=== PATIENT | male | born 1970 | race Caucasian/White ===

== ENCOUNTER 2022-08-31 16:23 | Emergency (ER) | payer OTHER, SELFPAY ==
[2022-08-31 16:23] VITALS: BP 153/95; PULSE 75; RESP 16; TEMP 36.6; O2SAT 100; BMI 26.9
--- NOTE | 2022-08-31 17:08 | EDS_ITS ---
HPI HPI - GI History of Present Illness Chief Complaint: Abd Pain Informant: patient and spouse/S.O. Narrative Narrative: Patient has been having essentially upper abdominal pain for about a week. It was sometimes moved to different areas. He has never had fevers or chills. He is not having nausea. He is able to eat and drink. Bowel habits have been relatively normal. He has history of prior cholecystectomy about 5 years ago and no issues. He does have a long history of reflux and GERD. He has been taking his omeprazole regularly. He does get sour acid the taste that will come in the back of his throat at times and he will get a little burning up into his chest. But he is not really having chest pain. Not having syncope lightheadedness shortness of breath or diaphoresis. He cannot think of any dietary changes that would have contributed to this. He saw his primary physician he was referred over here. [facility] Medical History (Updated 08/31/22 @ 19:[address] Mil Cole MD) Abdominal pain Abdominal pain Home Medications sucralfate 1 gram tablet (Carafate) 1 g PO TID #30 tabs 08/31/22 [Rx Last Taken Unknown] Allergy/AdvReac Type Severity Reaction Status Date / Time No Known Allergies Allergy Unverified 08/31/22 16:25 Family History Mother Hypertension Surgical History History of laparoscopic cholecystectomy History of tonsillectomy Social History Smoking Status: Never smoker alcohol intake: never substance use type: does not use ROS ROS ED Constitutional Constitutional ED: Denies chills or fever(s) ENT ENT ED: Denies sore throat Cardiovascular Cardiovascular: Denies palpitations or racing heartbeat Respiratory/Chest Respiratory/Chest: Denies cough or dyspnea Gastrointestinal Gastrointestinal: Reports abdominal pain and diarrhea; Denies nausea or vomiting Genitourinary Genitourinary ED: Denies hematuria Musculoskeletal Musculoskeletal: Denies back pain or neck pain Integumentary Denies rash Endocrine Endocrinology: Denies polydipsia or polyuria Hematologic/Lymphatic Hematologic/Lymphatic: Denies easy bleeding or easy bruising Allergic/Immunologic Allergic/Immunologic ED: Denies urticaria EXAM Physical Exam Narrative Exam Narrative: Patient awake alert sitting on bed in no acute distress. He looks comfortable nontoxic. HEENT shows no pallor. Mucous membranes are reasonably moist. Eyes show no pallor or icterus. Neck shows no JVD Lungs are clear bilaterally. No pain with a deep breath. Saturations are normal 100% on room air showing no hypoxia. Heart is regular. Rate of about 70. No murmur gallop or rub. No chest wall tenderness. No subcu air. Abdomen is soft nondistended has normal bowel sounds. He does have mild epigastric tenderness but no rebound or guarding. No tenderness in the lower abdomen or right upper quadrant. shows no CVA or suprapubic tenderness Extremities show no edema tenderness cords or asymmetry. Const Vital Signs: 08/31/22 16:23 Temperature 97.8 F Temperature Source Temporal Pulse Rate 75 Respiratory Rate 16 Blood Pressure 153/95 H Blood Pressure Mean 114 Pulse Ox 100 Oxygen Delivery Method Room Air MDM MDM MDM Narrative Medical decision making narrative: Patient's blood work shows normal CBC electrolytes liver function test lipase and troponin. Patient's recheck. He is feeling well now. His is very frustrated. She states that after 5 years is very frustrating that his symptoms are not controlled. He had endoscopy about 3 or so years ago. He was called by the office about 3 weeks ago to schedule a repeat. This patient is really having epigastric pain. He will occasionally get reflux. He is not really having much pain into his chest but will occasionally get a burning sensation. But he is not having other symptoms. These are not exertional. They do increase if he bends over. Bending over forward significantly produces the symptoms. I think this is likely acid related. I do not think this is cardiac. Since he has been having symptoms off and on for a week or more he has a totally negative troponin and overall low risk factors I do not think this requires admission for cardiac work-up. He is taking omeprazole. I discussed adding Maalox or Mylanta 3 times a day after meals and then before bedtime. This can help neutralize any remaining acid. I will also write for Carafate to see if this works and helps him. He will follow-up with his private physician. Lab Data Attestation: I reviewed the patient's lab results. Labs: Laboratory Results - last 24 hr 08/31/22 08/31/22 17:05 17:05 WBC 8.0 RBC 5.00 Hgb 15.4 Hct 45.3 MCV 90.6 MCH 30.8 MCHC 34.0 RDW Std Deviation 40.2 RDW Coeff of Calvin 12.2 Plt Count 214 MPV 9.0 Immature Gran % (Auto) 0.500 Neut % (Auto) 60.2 Lymph % (Auto) 29.4 Beaver % (Auto) 9.0 Eos % (Auto) 0.5 Baso % (Auto) 0.4 Absolute Neuts (auto) 4.8 Absolute Lymphs (auto) 2.36 Nucleated RBC % 0 Sodium 140 Potassium 3.8 Chloride 108 H Carbon Dioxide 26.0 Anion Gap 6 BUN 17 Creatinine 0.98 Estim Creat Clear Calc 85.31 Est GFR (MDRD) Af Amer 103 Est GFR (MDRD) Non-Af 85 BUN/Creatinine Ratio 17.3 Glucose 95 Calcium 9.5 Total Bilirubin 0.50 AST 26 ALT 67 H Alkaline Phosphatase 63 Troponin I High Sens 4 Total Protein 7.6 Albumin 4.2 Globulin 3.4 Albumin/Globulin Ratio 1.2 Lipase 131 Discharge Plan Triage Chief Complaint: Abd Pain ED Provider: Mil Cole Dx/Rx/DC Orders Clinical Impression: Epigastric pain Instructions: ED Gastritis Ulcer No Abx, ED Epigastric Pain Uncertain Cause Prescriptions: New sucralfate [Carafate] 1 gram tablet 1 g PO TID Qty: 30 0RF Primary Care Provider: Kathia Tubbs Referrals: Kathia Tubbs PA [Primary Care Provider] - 3-5 Days Disposition Disposition: Home, Self Care
[2022-08-31 17:28] LABS: Absolute Lymphocyte Count 2.36 X10^3/uL (0.83-4.51); Absolute Neutrophil Count 4.8 X10^3/uL (2.0-7.7); Basophil# 0.03 X10^3/uL; Basophil% 0.4 % (0-1); Eosinophil# 0.04 X10^3/uL; Eosinophils% 0.5 % (0-5); Hematocrit 45.3 % (40-54); Hemoglobin 15.4 g/dL (13.0-16.5); Lymphocyte # 2.36 X10^3/ul (0.83-4.51); Lymphocyte % 29.4 % (19-41); Mean Corpuscular Hgb 30.8 pg (27.0-32.0); Mean Corpuscular Volume 90.6 fL (80-94); Monocyte# 0.72 X10^3/uL; NRBC Flagged by Analyzer 0 % (0-5); Neutrophil # 4.84 X10^3/uL (2.7-7.7); Neutrophil % 60.2 % (47-70); Platelet Count 214 K/mm3 (150-450); RBC Distribution Width CV 12.2 % (11.6-14.6); RBC Distribution Width SD 40.2 fl (35.1-43.9)
[2022-08-31 17:48] LABS: ALB/GLOB Ratio 1.2 RATIO (0.9-2.4); AST(SGOT) 26 U/L (15-37); Alanine Aminotransfer ALT/SGPT 67 U/L (16-61); Albumin, Serum 4.2 g/dL (3.2-5.0); Alkaline Phosphatase 63 U/L (45-117); Anion Gap 6 (5-15); BUN 17 mg/dL (7-18); BUN/Creat Ratio 17.3 RATIO (10-20); Calcium,Total 9.5 mg/dL (8.5-10.1); Chloride 108 mmol/L (98-107); Creatinine, Serum 0.98 mg/dL (0.70-1.30); EST Glomerular Filtration Rate 85 mL/min (>60); Est Glom Filt Rate - Afr Amer 103 mL/min (>60); Estimated Creatinine Clearance 85.31 ml/min; Globulin 3.4 g/dL (2.2-4.2); Glucose 95 mg/dL (74-106); Lipase 131 U/L (73-393); Potassium 3.8 mmol/L (3.5-5.1); Protein, Total 7.6 g/dL (6.4-8.2); Sodium Level 140 mmol/L (136-145); Troponin-I HS 4 pg/mL (3.0-78.0)
[2022-08-31 19:31] VITALS: PULSE 65; RESP 15; O2SAT 99
== END 2022-08-31 19:42 | disposition home or self-care (01) ==
PROVIDERS: Emergency Provider Emergency Medicine; PCP Physician Assistant; Visit Provider Emergency Medicine
DX: R10.13 Epigastric pain (principal); K21.9 Gastro-esophageal reflux disease without esophagitis; Z90.49 Acquired absence of other specified parts of digestive tract
CPT/HCPCS: 80053; 83690; 84484; 85025; 96365; 96366; 99283; J7030; J3490

== ENCOUNTER → 2022-11-19 | Outpatient (CLI) | payer SELFPAY ==
[2022-11-19 10:58] LABS: Erythrocyte Sedimentation Rate 5 mm/hr (0-20)
[2022-11-19 11:01] LABS: Absolute Lymphocyte Count 1.99 X10^3/uL (0.83-4.51); Absolute Neutrophil Count 4.6 X10^3/uL (2.0-7.7); Basophil# 0.05 X10^3/uL; Basophil% 0.7 % (0-1); Eosinophil# 0.07 X10^3/uL; Eosinophils% 0.9 % (0-5); Hematocrit 46.4 % (40-54); Hemoglobin 15.6 g/dL (13.0-16.5); Lymphocyte # 1.99 X10^3/ul (0.83-4.51); Lymphocyte % 26.9 % (19-41); Mean Corp Hgb Conc 33.6 g/dL (32-36); Mean Corpuscular Hgb 31.3 pg (27.0-32.0); Mean Corpuscular Volume 93.2 fL (80-94); Mean Platelet Vol. 9.4 fl (6.2-12.0); Monocyte% 8.1 % (0-10); NRBC Flagged by Analyzer 0 % (0-5); Neutrophil # 4.61 X10^3/uL (2.7-7.7); Neutrophil % 62.2 % (47-70); Platelet Count 200 K/mm3 (150-450); RBC Distribution Width SD 41.2 fl (35.1-43.9); Red Blood Count 4.98 M/mm3 (4.6-6.2); White Blood Count 7.4 K/mm3 (4.4-11.0)
[2022-11-19 11:32] LABS: Hemoglobin A1c 5.3 % (3.8-5.6)
[2022-11-19 11:42] LABS: HIV - WCH Non-Reactive (Nonreactive)
[2022-11-19 11:44] LABS: ALB/GLOB Ratio 1.2 RATIO (0.9-2.4); AST(SGOT) 20 U/L (15-37); Alanine Aminotransfer ALT/SGPT 44 U/L (16-61); Albumin, Serum 4.3 g/dL (3.2-5.0); Alkaline Phosphatase 87 U/L (45-117); Anion Gap 5 (5-15); BUN 14 mg/dL (7-18); BUN/Creat Ratio 14.5 RATIO (10-20); CRP < 2.90 mg/L (0.0-3.0); Calcium,Total 9.5 mg/dL (8.5-10.1); Chloride 108 mmol/L (98-107); Creatinine, Serum 0.97 mg/dL (0.70-1.30); EST Glomerular Filtration Rate 87 mL/min (>60); Est Glom Filt Rate - Afr Amer 105 mL/min (>60); Globulin 3.5 g/dL (2.2-4.2); Glucose 93 mg/dL (74-106); LDH 182 U/L (87-241); Potassium 3.9 mmol/L (3.5-5.1); Protein, Total 7.8 g/dL (6.4-8.2); Sodium Level 139 mmol/L (136-145)
[2022-11-20 14:09] LABS: Endomysial Antibody IgA Negative (Negative); Immunoglobulin A 79 mg/dL (90-386); t-Transglutaminase IgA <2 U/mL (0-3)
[2022-11-22 15:08] LABS: AFP, Tumor Marker 5.7 ng/mL (0.0-8.4); Albumin 4.3 g/dL (2.9-4.4); Alpha-1-Globulins 0.2 g/dL (0.0-0.4); Alpha-2-Globulins 0.6 g/dL (0.4-1.0); Angiotensin Convert Enzyme 80 U/L (14-82); Anti-Smooth Muscle ABS 8 Units (0-19); Ceruloplasmin 21.4 mg/dL (16.0-31.0); Copper, Serum or Plasma 94 ug/dL (69-132); Cytoplasmic Ab (C-ANCA) <1:20 titer (Neg:<1:20); Gamma Globulin 0.9 g/dL (0.4-1.8); HEPATITIS B SURFACE AG Negative (Negative); Haptoglobin 71 mg/dL (29-370); Hep C Antibodies Non Reactive (Non Reactive); Hepatitis A IgM Antibody Negative (Negative); Hepatitis B Core AB IgM Negative (Negative); Immunoglobulin A 77 mg/dL (90-386); Immunoglobulin E 5 IU/mL (6-495); Immunoglobulin G 973 mg/dL (603-1613); Immunoglobulin M 94 mg/dL (20-172); Perinuclear Ab (P-ANCA) <1:20 titer (Neg:<1:20)
[2022-11-22 19:07] LABS: Anti-Centromere B Ab <0.2 AI (0.0-0.9); Anti-Chromatin <0.2 AI (0.0-0.9); Anti-Jo <0.2 AI (0.0-0.9); Anti-Mitochondrial AB <20.0 Units (0.0-20.0); Anti-Scleroderma-70 AB <0.2 AI (0.0-0.9); Anti-dsDNA Ab <1 IU/mL (0-9); Beef <0.10 kU/L (Class 0); Chocolate <0.10 kU/L (Class 0); Clam <0.10 kU/L (Class 0); Codfish <0.10 kU/L (Class 0); Corn <0.10 kU/L (Class 0); Egg, White <0.10 kU/L (Class 0); Egg, Whole <0.10 kU/L (Class 0); Milk (Cow) <0.10 kU/L (Class 0); Peanut <0.10 kU/L (Class 0); Pork <0.10 kU/L (Class 0); RNP Ab <0.2 AI (0.0-0.9); SCALLOP <0.10 kU/L (Class 0); SESAME SEED <0.10 kU/L (Class 0); SJOGREN'S Anti-SS-A test < 0.2 AI (0.0-0.9); SJOGREN'S Anti-SS-B test < 0.2 AI (0.0-0.9); Shrimp <0.10 kU/L (Class 0); Smith Ab <0.2 AI (0.0-0.9); Soybean <0.10 kU/L (Class 0); Walnut, (Food) <0.10 kU/L (Class 0); Wheat <0.10 kU/L (Class 0)
== END | disposition home or self-care (01) ==
LOC: LAB 10:10
PROVIDERS: PCP Physician Assistant; Referring Provider Internal Medicine Gastroenterology; Visit Provider Internal Medicine Gastroenterology
DX: K76.0 Fatty (change of) liver, not elsewhere classified (principal); R10.9 Unspecified abdominal pain
CPT/HCPCS: 36415; 80053; 80074; 82105; 82164; 82390; 82525; 82784; 82785; 83010; 83036; 83516; 83615; 84165; 85025; 85652; 86003; 86005; 86140; 86225; 86235; 86255; 86256; 86334; 86703

== ENCOUNTER → 2022-12-12 | Outpatient (CLI) | payer SELFPAY ==
[2022-12-15 19:07] LABS: Calprotectin, Stool <5 ug/g (0-120)
[2022-12-17 04:06] LABS: H. PYLORI STOOL AG Negative (Negative); Pancreatic Elastase, Fecal 127 (>200)
== END | disposition home or self-care (01) ==
LOC: LABSPEC 08:00
PROVIDERS: PCP Physician Assistant; Referring Provider Internal Medicine Gastroenterology; Visit Provider Internal Medicine Gastroenterology
DX: R10.9 Unspecified abdominal pain (principal); K76.0 Fatty (change of) liver, not elsewhere classified; K58.9 Irritable bowel syndrome, unspecified
CPT/HCPCS: 82653; 83630; 83993; 87177; 87209; 87329; 87338; 87493; 87506

== ENCOUNTER → 2023-10-01 | Outpatient (CLI) | payer SELFPAY ==
--- NOTE | 2023-10-01 09:50 | RAD_ITS ---
PROCEDURE: SMALL BOWEL SERIES DATE OF EXAMINATION: October 01, 2023. INDICATION: Male, 53 years old. Ileus 2 weeks ago with constipation. PHYSICIAN: Jim Stein M.D. FLUOROSCOPY TIME (if supplied): (1:58) minutes/seconds. 55.86 mGy. 6 images were obtained. TECHNIQUE: Radiographic and fluoroscopic images were taken of the small intestine following the ingestion of barium. COMPARISON: None. FINDINGS: A preliminary supine KUB was obtained. There is an unremarkable bowel gas pattern. Fecal material is present throughout the colon. Phleboliths are present within the pelvis. The lung bases are unremarkable. Degenerative changes of the lumbar spine and hip joints. The patient orally ingested approximately 12 ounces barium and Gastrografin. Normal visualized fundus, body, and antrum of the stomach. Normal duodenal bulb, C-loop, and proximal jejunum. Normal visualized mucosal folds of the jejunum and ileum. There are no demonstrated dilatations, strictures, or masses of the small intestine. There is no mass displacement of the loops of small intestine. There is a normal motor pattern with barium reaching the colon within approximately 30 minutes. Spot films under fluoroscopic observation demonstrated a normal terminal ileum and ileocecal valve. RAD/Small Bowel Series Only IMPRESSION: Normal small bowel series. Electronically Signed: Jim Stein MD at 14:11 EDT ,
== END | disposition home or self-care (01) ==
LOC: RAD 08:53
PROVIDERS: PCP Physician Assistant; Referring Provider Physician Assistant; Visit Provider Physician Assistant
DX: K56.7 Ileus, unspecified (principal)
CPT/HCPCS: 74250